=== PATIENT | male | born 2000 | race Caucasian/White ===

== ENCOUNTER 2022-09-08 08:32 | Emergency (ER) | payer OTHER ==
[2022-09-08 09:02] VITALS: BP 150/63
--- NOTE | 2022-09-08 09:23 | XRAY Report ---
PROCEDURE: Shoulder 3 View RT INDICATIONS: trauma TECHNIQUE: 3 views of the shoulder were acquired. COMPARISON: None. FINDINGS: Bones: No fractures or dislocations. No suspicious bony lesions. Visualized ribs appear intact. Soft tissues: No suspicious soft tissue calcifications. IMPRESSION: No acute bony abnormality. Reviewed by: Leon Ramirez on 09/08/2022 9:22 AM PDT Approved by: Leon Ramirez on 09/08/2022 9:22 AM PDT Station ID: [id number]
[2022-09-08] MEDS ORDERED: LIDOCAINE PATCH 5% TOP STA (10:15)
[2022-09-08] MEDS ORDERED: IBUPROFEN 800 MG TABLET PO STA (10:16)
--- NOTE | 2022-09-08 10:24 | ED Physician Documentation ---
PD HPI UPPER EXT INJURY - Stated complaint Stated Complaint: RT SHOULDER PX - Chief complaint Chief Complaint: Ext Problem - History obtained from History obtained from: Patient - Additonal information Additional information: His leftPatient is a 22-year-old male presenting for evaluation of right shoulder pain since yesterday evening. Patient boxes above his head it for work when he started feeling a strain in his right shoulder.Contrary to triage note he denies to me that he felt a pop. He then went to the gym afterwards and noticed increased pain.He denies prior injury to the extremity. He denies numbness or tingling. He reports the pain feels like a tightness. It is worse with movementsHe has not yet tried any medications for this. Review of Systems Constitutional: denies: Fever Cardiac: denies: Chest pain / pressure Respiratory: denies: Dyspnea GI: denies: Abdominal Pain : denies: Dysuria Musculoskeletal: reports: Joint pain Neurologic: denies: Headache PD PAST MEDICAL HISTORY - Present Medications Home Medications: Ambulatory Orders Medication Instructions Recorded Confirmed Cyclobenzaprine [Flexeril] 10 mg PO TID PRN #15 tablet 09/08/22 Lidocaine Patch 5% [Lidoderm Patch] 1 patch TOP DAILY PRN #10 patch 09/08/22 - Allergies Allergies/Adverse Reactions: Allergies Allergy/AdvReac Type Severity Reaction Status Date / Time No Known Drug Allergies Allergy Verified 09/08/22 09:03 PD ED PE NORMAL - General General: Alert and oriented X 3, No acute distress, Well developed/nourished - HEENT HEENT: Atraumatic - Neck Neck: Supple, no meningeal sign, No bony TTP - Cardiac Cardiac: RRR - Respiratory Respiratory: No respiratory distress, Clear bilaterally - Abdomen Abdomen: Soft, Non tender - Derm Derm: Warm and dry - Extremities Extremities: No deformity, Normal ROM s pain, Other (Tightness over right trapezius, Normal range of motion of the right shoulder including able to touch right hand to left shoulder and also able to range of motion his arm behind his back, intact distal pulses) - Neuro Neuro: No motor deficit Results - Vitals Vitals: Vital Signs - 24 hr 09/08/22 08:57 Temperature 36.3 C L Heart Rate 57 L Respiratory 18 Rate Blood Pressure 150/63 H O2 Saturation 100 Oxygen O2 Source Room air PD Medical Decision Making - ED course ED course: Patient with right shoulder pain.Appears neurovascularly intact on exam with no visible deformities.Has good range of motion although limited by some pain. X- ray was obtained which I also reviewed and I do not see signs for fracture or dislocation.Patient likely has pain related to a strain injury. Discussed options for treatment which she is agreeable to. He declined a sling. Patient is counseled on need for close follow-up if symptoms or not improving. Departure - Departure Disposition: 01 Home, Self Care Clinical Impression: Right shoulder injury Condition: Stable Instructions: ED Shoulder Pain [facility] Prescriptions: Cyclobenzaprine [Flexeril] 10 mg PO TID PRN #15 tablet PRN Reason: Spasms Lidocaine Patch 5% [Lidoderm Patch] 1 patch TOP DAILY PRN #10 patch PRN Reason: pain Comments: You have injured your right shoulder and appears to be causing muscle tightness in the area. Your x-ray does not show a broken or dislocated bone. However you could have injuries to the rotator cuff, ligaments or muscles to the area.I would recommend using lidocaine patches, a muscle relaxer as well as anti- inflammatory such as acetaminophen or ibuprofen.I would continue to rest the shoulder for the next several days, use ice. I would avoid any lifting movements as this may worsen your pain. If your symptoms or not improving over the next week then I would recommend close follow-up with your primary care as you may need further testing such as an MRI of your shoulder. I have sent prescriptions to [facility] in [place]. Forms: Activity restrictions Discharge Date/Time: 09/08/22 10:40
== END 2022-09-08 10:40 | disposition home or self-care (01) ==
LOC: ED 08:32
DX: S49.91XA Unspecified injury of right shoulder and upper arm, initial encounter (principal); X50.0XXA Overexertion from strenuous movement or load, initial encounter; Y93.89 Activity, other specified; Y99.1 Military activity
CPT/HCPCS: 73030; 99283; A9270

== ENCOUNTER 2023-05-23 08:59 | Emergency (ER) | payer OTHER ==
[2023-05-23 09:15] VITALS: BP 135/64; O2SAT 97
--- NOTE | 2023-05-23 09:36 | ED Physician Documentation ---
PD HPI OPHTHO - Stated complaint Stated Complaint: RT EYE RED/ITCHY - Chief complaint Chief Complaint: Heent - History obtained from History obtained from: Patient - History of Present Illness Timing - onset: How many days ago (2-3) Timing - duration: Days Timing - details: Gradual onset, Still present (onset of right eye irritation and watering. Took contacts out and felt some better but then worse when contacts back in. Took it out. Today with more watering, redness, and coarse irritaiton. No discharge per se. No loss of vision. No current URI symptoms. Had URI about 2 weeks ago.) Location: Right Associated symptoms: Redness, Tearing, FB sensation. No: Discharge, Photophobia, Headache Contributing factors: Recent URI, Wears contacts Similar symptoms before: Has not had sx before Recently seen: Not recently seen Review of Systems Constitutional: denies: Fever, Chills Eyes: reports: Decreased vision (blurry), Irritation. denies: Photophobia, Discharge Nose: denies: Congestion Throat: denies: Sore throat Respiratory: denies: Cough PD PAST MEDICAL HISTORY - Past Medical History Past Medical History: No - Past Surgical History Past Surgical History: No - Present Medications Home Medications: Ambulatory Orders Medication Instructions Recorded Confirmed Ciprofloxacin HCl [Ciloxan] 1 applic RIGHTEYE QID 5 Days #3.5 05/23/23 gm Ketorolac Tromethamine 2 drops RIGHTEYE QID 5 Days #5 ml 05/23/23 - Allergies Allergies/Adverse Reactions: Allergies Allergy/AdvReac Type Severity Reaction Status Date / Time No Known Drug Allergies Allergy Verified 05/23/23 09:12 - Social History Does the pt smoke?: No Smoking Status: Never smoker Does the pt drink ETOH?: Yes Does the pt have substance abuse?: No - Immunizations Immunizations are current?: Yes PD ED PE NORMAL - Vitals Vital signs reviewed: Yes - General General: Alert and oriented X 3, Well developed/nourished, Other (appears uncomfortable right eye. ) - HEENT HEENT: Ears normal, Moist mucous membranes - Neck Neck: Supple, no meningeal sign, No adenopathy PD ED PE EXPANDED - Eyes Eyes: EOMI, Right eye, Anterior chambers clear, Normal fundi. No: Eyelid erythema, Corneal FB, Corneal abrasion, Fluorescein uptake Results - Vitals Vitals: Vital Signs - 24 hr 05/23/23 09:08 Temperature 36.5 C Heart Rate 78 Respiratory 16 Rate Blood Pressure 135/64 H O2 Saturation 97 Oxygen O2 Source Room air PD Medical Decision Making - ED course Complexity details: considered differential (URI sympotms 2 weeks ago, resolved, making viral conjunctivitis not right timing. Likely more related to contact lens use with now conjunctivitis. ), d/w patient Departure - Departure Disposition: 01 Home, Self Care Clinical Impression: Acute conjunctivitis, right eye Condition: Stable Record reviewed to determine appropriate education?: Yes Instructions: ED Conjunctivitis Bacterial Follow-Up: [facility] [Provider Group] Prescriptions: Ciprofloxacin HCl [Ciloxan] 1 applic RIGHTEYE QID 5 Days #3.5 gm Ketorolac Tromethamine 2 drops RIGHTEYE QID 5 Days #5 ml Comments: Off duty today and possibly tomorrow. We can treat this with a combination of anti-inflammatory as well as antibiotic eyedrops 4 times daily and this should improve over the next 2 to 3 days and resolved but not timeframe. No contact wearing until fully improved, likely 4 to 5 days. Recheck if not improved well over the next couple of days. I sent your prescriptions to the [facility]. Tylenol if needed for pains. You can add ibuprofen if needed as well. Forms: PCP List, Activity restrictions Discharge Date/Time: 05/23/23 09:59
== END 2023-05-23 09:59 | disposition home or self-care (01) ==
LOC: ED 08:59
DX: H10.31 Unspecified acute conjunctivitis, right eye (principal)
CPT/HCPCS: 99282; 99283

== ENCOUNTER 2023-06-05 12:27 | Emergency (ER) | payer OTHER ==
[2023-06-05 12:57] LABS: BASOPHILS # (AUTO) 0.1 10^3/uL (0.0-0.1); BASOPHILS % (AUTO) 1.1 %; EOSINOPHILS # (AUTO) 0.1 10^3/uL (0.0-0.7); EOSINOPHILS % (AUTO) 1.6 %; HCT - HEMATOCRIT 44.1 % (42.0-52.0); HGB - HEMOGLOBIN 15.1 g/dL (14.0-18.0); LYMPHOCYTES # (AUTO) 2.4 10^3/uL (1.5-3.5); LYMPHOCYTES % (AUTO) 42.5 %; MEAN CORPUSCULAR HEMOGLOBIN 28.5 pg (27.0-31.0); MEAN CORPUSCULAR HGB CONC 34.2 g/dL (32.0-36.0); MEAN CORPUSCULAR VOLUME 83.4 fL (80.0-94.0); MONOCYTES # (AUTO) 0.4 10^3/uL (0.0-1.0); MONOCYTES % (AUTO) 7.5 %; NEUTROPHILS # (AUTO) 2.7 10^3/uL (1.5-6.6); NEUTROPHILS % (AUTO) 47.1 %; PLT - PLATELET COUNT 304 10^3/uL (130-450); RED BLOOD COUNT 5.29 10^6/uL (4.70-6.10); RED CELL DISTRIBUTION WIDTH 12.2 % (12.0-15.0); WHITE BLOOD COUNT 5.6 x10^3/uL (4.8-10.8)
--- NOTE | 2023-06-05 13:13 | XRAY Report ---
PROCEDURE: Chest 1 View X-Ray INDICATIONS: Chest pain TECHNIQUE: One view of the chest was acquired. COMPARISON: None. FINDINGS: Surgical changes and devices: None. Lungs and pleura: No pleural effusions or pneumothorax. Lungs are clear. Mediastinum: Mediastinal contours appear normal. Heart size is normal. Bones and chest wall: No suspicious bony lesions. Overlying soft tissues appear unremarkable. IMPRESSION: No acute cardiopulmonary process. No focal airspace disease. Reviewed by: Randolph Olson MD on 06/05/2023 1:12 PM PST Approved by: Randolph Olson MD on 06/05/2023 1:12 PM [facility] Station ID: [id number]
[2023-06-05 13:18] LABS: TROPONIN I HIGH SENSITIVITY 3.4 ng/L (2.3-19.7)
[2023-06-05 13:24] LABS: ALBUMIN 4.9 g/dL (3.2-5.5); ALBUMIN/GLOBULIN RATIO 1.5 (1.0-2.2); ALKALINE PHOSPHATASE 62 IU/L (42-121); ALT ALANINE AMINOTRANSFERASE 22 IU/L (10-60); AST ASPARTATE AMINOTRANSFERASE 23 IU/L (10-42); BILIRUBIN,TOTAL 0.3 mg/dL (0.2-1.0); BUN - BLOOD UREA NITROGEN 18 mg/dL (6-20); CALCIUM 10.5 mg/dL (8.5-10.3); CARBON DIOXIDE - CO2 32 mmol/L (21-32); CHLORIDE 103 mmol/L (101-111); CRP - C-REACTIVE PROTEIN < 0.5 mg/dL (<0.5); GFR - MDRD 92 (>89); GLUCOSE 90 mg/dL (74-104); LIPASE 22 U/L (11-82); MAGNESIUM 1.7 mg/dL (1.7-2.3); POTASSIUM 4.1 mmol/L (3.5-4.5); SODIUM 139 mmol/L (135-145); TOTAL PROTEIN 8.1 g/dL (6.4-8.9)
--- NOTE | 2023-06-05 15:58 | ED Physician Documentation ---
PD HPI CHEST PAIN - Stated complaint Stated Complaint: CP - Chief complaint Chief Complaint: Cardiac - History obtained from History obtained from: Patient - History of Present Illness Timing - onset: Last night Timing - onset during: Rest Timing - duration: Hours Timing - details: Abrupt onset, Still present (noted when moves left arm/shoulder and with some deep breathing.) Quality: Aching, Sharp, Pain Location: Left chest (pectoral area and parasternal.) Radiation: No: Jaw, Neck, Back Improved by: Rest Worsened by: Inspiration, Movement, Palpation. No: Eating Associated symptoms: No: Shortness of air, Nausea, Vomiting Similar symptoms before: Has not had sx before Recently seen: Clinic (seem at [facility] for this and ECG showing ST changes concerning for pericarditis. Referred to ER.) Review of Systems Constitutional: denies: Fever, Chills Nose: denies: Rhinorrhea / runny nose, Congestion Throat: denies: Sore throat Respiratory: denies: Cough GI: denies: Abdominal Pain PD PAST MEDICAL HISTORY - Past Medical History Past Medical History: No Cardiovascular: None Respiratory: None Endocrine/Autoimmune: None - Past Surgical History Past Surgical History: No - Present Medications Home Medications: Ambulatory Orders Medication Instructions Recorded Confirmed Ciprofloxacin HCl [Ciloxan] 1 applic RIGHTEYE QID 5 Days #3.5 05/23/23 gm Ketorolac Tromethamine 2 drops RIGHTEYE QID 5 Days #5 ml 05/23/23 Ibuprofen [Motrin] 600 mg PO TID PRN #25 tab 06/05/23 - Allergies Allergies/Adverse Reactions: Allergies Allergy/AdvReac Type Severity Reaction Status Date / Time No Known Drug Allergies Allergy Verified 06/05/23 12:34 - Social History Does the pt smoke?: No Smoking Status: Never smoker Does the pt drink ETOH?: No Does the pt have substance abuse?: No - Immunizations Immunizations are current?: Yes PD ED PE NORMAL - Vitals Vital signs reviewed: Yes - General General: Alert and oriented X 3, No acute distress, Well developed/nourished - Neck Neck: Supple, no meningeal sign, No adenopathy - Cardiac Cardiac: RRR, No murmur, No rub - Respiratory Respiratory: No respiratory distress, Clear bilaterally - Abdomen Abdomen: Soft, Non tender - Derm Derm: Normal color, Warm and dry - Extremities Extremities: Normal ROM s pain, No edema, No calf tenderness / cord - Neuro Neuro: Alert and oriented X 3, No motor deficit, Normal speech Results - Vitals Vitals: Oxygen O2 Source Room air - EKG (time done) 12:34 EKG releavant findings:: EKG personally interpreted by author of this note. Relevant findings are: Rate: Rate (enter#) (73) Rhythm: NSR [place]: Normal Intervals: Normal [place] QRS: Normal Ischemia: Normal ST segments, ST elevation c/w repol. No: ST elevation c/w ischemia, ST depression - Labs Labs: Laboratory Tests 06/05/23 06/05/23 06/05/23 12:42 12:42 12:42 WBC 5.6 RBC 5.29 Hgb 15.1 Hct 44.1 MCV 83.4 MCH 28.5 MCHC 34.2 RDW 12.2 Plt Count 304 MPV 10.0 Neut # (Auto) 2.7 Lymph # (Auto) 2.4 [place] # (Auto) 0.4 Eos # (Auto) 0.1 Baso # (Auto) 0.1 Absolute Nucleated RBC 0.00 Nucleated RBC % 0.0 ESR 6 Sodium 139 Potassium 4.1 Chloride 103 Carbon Dioxide 32 Anion Gap 4.0 L BUN 18 Creatinine 1.0 Estimated GFR (MDRD) 92 Glucose 90 Calcium 10.5 H Magnesium 1.7 Total Bilirubin 0.3 AST 23 ALT 22 Alkaline Phosphatase 62 Troponin I High Sens 3.4 C-Reactive Protein < 0.5 B-Natriuretic Peptide Total Protein 8.1 Albumin 4.9 Globulin 3.2 Albumin/Globulin Ratio 1.5 Lipase 22 06/05/23 12:42 WBC RBC Hgb Hct MCV MCH MCHC RDW Plt Count MPV Neut # (Auto) Lymph # (Auto) [place] # (Auto) Eos # (Auto) Baso # (Auto) Absolute Nucleated RBC Nucleated RBC % ESR Sodium Potassium Chloride Carbon Dioxide Anion Gap BUN Creatinine Estimated GFR (MDRD) Glucose Calcium Magnesium Total Bilirubin AST ALT Alkaline Phosphatase Troponin I High Sens C-Reactive Protein B-Natriuretic Peptide < 5 L Total Protein Albumin Globulin Albumin/Globulin Ratio Lipase - Rads (name of study) chest xray Relevant Findings:: Prelim report reviewed, EMP independent interpretation of test (no acute abnormality.) PD Medical Decision Making - ED course Complexity details: reviewed results (labs do not suggest stress on heart muscle nor an infammatory component. So does not fit for pericarditis. Presume early repolarization. ), considered differential (the character of his pain seems muscular with tender to palpation, movment of shoulder and deep breathing. Consider pericarditis, but no murmur/rub and labs nromal of CRP, ESR, Trop, and BNP. ), d/w patient Departure - Departure Disposition: 01 Home, Self Care Clinical Impression: Left-sided chest pain, Muscular chest pain Condition: Stable Record reviewed to determine appropriate education?: Yes Follow-Up: [facility] [Provider Group] Prescriptions: Ibuprofen [Motrin] 600 mg PO TID PRN #25 tab PRN Reason: Pain Comments: Your EKG shows some abnormalities that could be consistent with inflammation of the heart or a normal variation called early repolarization. You were sent down here to ensure nothing more significant. Your chest x-ray is clear without any signs of enlarged heart or lung abnormality. Your blood test show normal testing including ones called troponin and BNP which assesses for heart muscle injury or heart failure. These were both negative. We also did blood tests of inflammatory markers called the CRP and sed rate that were normal as well. These would typically be elevated in inflammatory conditions such as pericarditis and myocarditis. The above test results exclude serious causes for your chest pain. It has the character of muscular type pain and without other notable abnormalities or problems, it is a safe to conclude that your pain is just muscular. Decrease activity for the next 3 to 5 days with out any heavy lifting or working out in the upper body. Use anti-inflammatory such as ibuprofen 3 times daily with food for the next 5 to 7 days. Add Tylenol every 4-6 hours if needed for pain. Recheck if not improved over the next several days and return if worse or other symptoms develop. Occasionally muscular pains like this can precede a viral type illness so if you do develop sore throat or cough or fevers then it could make sense. Otherwise just a muscular strain. I sent your script to the [facility] pharmacy. Forms: PCP List, Activity restrictions Discharge Date/Time: 06/05/23 16:45
[2023-06-05] MEDS ORDERED: IBUPROFEN 600 MG TABLET PO STA (16:18)
[2023-06-05] MEDS ORDERED: ACETAMINOPHEN 325 MG TABLET PO STA (16:18)
[2023-06-05 16:47] VITALS: BP 132/68; O2SAT 95
== END 2023-06-05 16:45 | disposition home or self-care (01) ==
LOC: ED 12:27
DX: R07.89 Other chest pain (principal)
CPT/HCPCS: 36415; 71045; 80053; 83690; 83735; 83880; 84484; 85025; 85651; 86140; 93005; 99284; A9270